=== PATIENT | male | born 1990 | race Two or more races ===

== ENCOUNTER 2025-06-13 10:19 | Outpatient (CLI) | payer MEDICAID ==
[2025-06-13 11:22] LABS: Hematocrit 48.2 % (41.0-53.0); Hemoglobin 16.6 g/dL (13.5-17.5); Mean Corpuscular Hemoglobin 33.5 pg (28.0-32.0); Mean Corpuscular Volume 97.5 fL (80.0-100.0); Nucleated Red Blood Cells % 0.0 %
[2025-06-13 11:39] LABS: Urine Protein, UAD TRACE (Negative)
[2025-06-13 11:55] LABS: Alanine Aminotransferase 16 U/L (7-40); Albumin 4.8 g/dL (3.2-4.8); Alkaline Phosphatase 83 U/L (46-116); Anion Gap 9 (5-15); Calcium 9.4 mg/dL (8.7-10.4); Carbon Dioxide 27 mmol/L (20-31); Chloride 107 mmol/L (98-107); Cholesterol 200 mg/dL (< 200); Glucose 102 mg/dL (74-106); HDL Cholesterol 47 mg/dL (40-59); Potassium 4.3 mmol/L (3.5-5.1); Sodium 143 mmol/L (136-145); Total Protein 7.8 g/dL (5.7-8.2); Triglycerides 95 mg/dL (< 150)
[2025-06-13 11:56] LABS: Bilirubin, Total 0.5 mg/dL (0.2-1.0)
[2025-06-13 11:58] LABS: BUN/Creatinine Ratio 4.7 (10.0-20.0); Blood Urea Nitrogen < 5 mg/dL (9-23)
== END 2025-06-13 17:00 | disposition home or self-care (01) ==
LOC: LAB 10:19
PROVIDERS: ATTEND Internal Medicine
DX: Z00.00 Encounter for general adult medical examination without abnormal findings (principal)
CPT/HCPCS: 36415; 80053; 80061; 81001; 83036; 84439; 84443; 85025